=== PATIENT | male | born 1945 | race Caucasian/White ===

== ENCOUNTER 2025-05-18 05:45 | Day surgery (SDC) | payer MEDICARE, OTHER ==
--- NOTE | 2025-05-10 14:53 | ELECTROCARDIOGRAPH REPORT ---
[facility] Test Date: 2025-05-10 Test Time: 14:51:16 Pat Name: JAMARI WALDEN Department: [facility]-PRE-OP Patient ID: [id number] Room: Gender: M Postpartum Nurse: nabil : 1945 Requested By: DARLYN BULL Order Number: [id number] Reading MD: Dr. Colton Ascencio Measurements Intervals [place] Rate: 56 P: 63 UT: 180 QRS: 39 QRSD: 95 T: 62 QT: 399 QTc: 386 Interpretive Statements Sinus rhythm Ventricular trigeminy, multiform PVCs Abnormal R-wave progression, early transition Electronically Signed On 05-12-2025 13:17:[address] Colton Ascencio Please click the below link to view image of tracing.
[2025-05-10 14:59] LABS: MEAN PLATELET VOLUME 9.6 FL (7.4-10.4); PRE OP HEMATOCRIT 43.2 % (42.0-52.0); PRE OP HEMOGLOBIN 14.7 g/dL (14.0-17.9); PRE OP PLATELET COUNT 206 X10'3 (140-440); PRE OP WHITE BLOOD COUNT 6.4 10'3 (4.8-10.8); RED CELL DISTRIBUTION WIDTH 13.6 % (11.5-14.5)
[2025-05-10 15:17] LABS: PRE OP INR 1.1 INR; PRE OP PARTIAL THROMB. TIME 25.0 SECONDS (22-32); PRE OP PROTIME 11.0 SECONDS (9.0-12.0)
[2025-05-10 15:30] LABS: CREATININE 1.21 MG/DL (0.60-1.10); PRE OP ALT 35 U/L (30-65); PRE OP ANION GAP 9 (8-16); PRE OP AST 23 U/L (10-37); PRE OP BILIRUB, TOTAL 0.5 MG/DL (0.0-1.0); PRE OP GLUCOSE 100 MG/DL (70-104); PRE OP POTASSIUM 4.4 MMOL/L (3.4-5.1); PRE OP SODIUM 144 MMOL/L (135-145); TOTAL CARBON DIOXIDE 27.5 MMOL/L (24-32); eGFR 58 ML/MIN
[2025-05-18] VITALS (12 sets, daily range): BP systolic 116–164; BP diastolic 59–86; PULSE 50–60; RESP 12–16; TEMP 96.7; O2SAT 95–100
[~2025-05-18] VITALS: Ht 175.3 cm; Wt 90.4 kg
[~2025-05-18 05:45] MED LIST: FERR325T28 PO; LEVO50TA8 PO; MULT-1085 PO; oxymetazoline 15 ML nasal spray NS ONE
[2025-05-18] MEDS ORDERED: epiNEPHrine 1 mg/ml 30ml MDV ONE (06:50)
[2025-05-18] MEDS ORDERED: cocaine 4% topical solution 4ml bottle ONE (06:50)
[2025-05-18] MEDS ORDERED: LIDOcaine 1% W/epiNEPHrine 1:100,000 20ml vial ONE (06:51)
[2025-05-18] MEDS ORDERED: oxymetazoline 15 ML nasal spray NS ONE ×2 (06:54→07:01)
[2025-05-18] MEDS: ringers solution, lacted 1,000 ML IV SCH (06:56)
[2025-05-18] MEDS: ceFAZolin 2gm/dext,iso 50mL 50 ML IV ONE (06:57)
[2025-05-18] MEDS: oxymetazoline 15 ML nasal spray NS ONE (07:39)
[2025-05-18] MEDS ORDERED: midazolam 1 mg/ML 2ml injection ONE (08:15)
[2025-05-18] MEDS ORDERED: fentaNYL /PF 50mcg/ml 5ml ampule ONE (08:15)
[2025-05-18] MEDS ORDERED: ondansetron/PF 4mg/2ml inj ONE (08:17)
[2025-05-18] MEDS ORDERED: propofol inj 20 ML IV ONE (08:17)
[2025-05-18] MEDS ORDERED: dexamethasone sod phosphate 4mg/ml inj. ONE (08:17)
[2025-05-18] MEDS ORDERED: LIDOcaine 2% (20mg/ml) 5ml vial ONE (08:17)
[2025-05-18] MEDS ORDERED: ondansetron/PF 4mg/2ml inj IV PRN (10:00)
[2025-05-18] MEDS ORDERED: fentaNYL/PF 50MCG/1 ML 2ML syringe IV PRN ×2 (10:00)
[2025-05-18] MEDS ORDERED: labetalol 20mg/4ml (5mg/ml) syringe IV PRN (10:00)
[2025-05-18] MEDS ORDERED: HYDROmorphone/PF 0.2 MG/ML SYRINGE IV PRN ×2 (10:00)
[2025-05-18] MEDS ORDERED: ringers solution, lacted 1,000 ML IV SCH (10:00)
[2025-05-18] MEDS ORDERED: morphine 4 MG/ML inj SYRINge IV PRN (10:00)
--- NOTE | 2025-05-18 10:06 | OPERATIVE REPORT ---
DATE OF SURGERY: 05/18/2025 DICTATING PHYSICIAN: Dg Palumbo MD PREOPERATIVE DIAGNOSES: Deviated nasal septum, hypertrophic inferior turbinates. POSTOPERATIVE DIAGNOSES: Deviated nasal septum, hypertrophic inferior turbinates. PROCEDURES: * Septoplasty. * Submucous resection, right inferior turbinate. * Submucous resection, left inferior turbinate. SURGEON: Dg Palumbo MD. ANESTHESIA: General laryngeal mask, Dr. Escobar. HISTORY: The patient is a 79-year-old male with a chief complaint of anosmia and nasal airway obstruction. On physical examination, the septum was widely deviated in a convoluted fashion with multiple deviations of the bony and cartilaginous septum. The inferior turbinates were hypertrophic. On the basis of the above findings, I felt the patient had anosmia and nasal airway obstruction was the possible cause and therefore the risks, alternatives, and benefits of surgery were explained to the patient and accepted. DESCRIPTION OF PROCEDURE: The patient was brought to the operating room, given a general anesthesia, and prepped and draped in the usual fashion. 1% Xylocaine with 1:100,000 epinephrine was infiltrated into both sides of the septum and the inferior turbinates. After a suitable time had elapsed for vasoconstriction, the operation commenced with a septoplasty. A caudal incision was created on the left hand side of the septum and a mucoperichondrial mucoperiosteal flap very carefully elevated. A [place] knife was used to transect the quadrilateral cartilage just caudal to the most caudal deflection and a mucoperichondrial mucoperiosteal flap elevated off of the contralateral side. Then, the deviated portions of quadrilateral cartilage, perpendicular plate of the ethmoid, vomer, and maxillary crests were removed. Septal leaves were coapted using a combination of fibrin glue and 4-0 chromic on a P3 needle, which yielded a midline septum. The caudal incision was closed with 3 interrupted sutures of 4-0 chromic on a P3 needle. Then, a horizontal mattress suture was placed with a long bayonet needle rolloff truck driver of 4-0 chromic on a P3 needle. We turned our attention then to the left inferior turbinate. The left inferior turbinate [place] bone was lateralized using a [place] elevator and then a submucous resection accomplished in the following manner. A caudal incision was made with a [place] blade and then a medial flap elevated using caudal elevator and suction elevator. Next, the turbinate blade was placed into the pocket and rotated so that it microshaved away the undersurface of the mucoperiosteal flap, removing hypertrophic submucosal stroma. The medial flap was allowed to recede itself down upon the conchal bone and the flap incision closed with bipolar forceps. We turned our attention to the right inferior turbinate, which was also hypertrophic and carried out a submucosal resection utilizing the same techniques as described above. At the end of the procedure, hemostasis was intact. Bactroban water soluble ointment was used to coat the septum and the inferior turbinates and then 2 cottonoids placed in each nasal cavity for pressure hemostasis. These will be removed in the recovery room leaving the patient unpacked. The patient tolerated the procedure well with the accompaniment of a minimal blood loss. Dg Palumbo MD TID: [id number] RECEIPT: [id number] GD/IRLANDA cc: Abdirizak Redyd MD
[2025-05-18] MEDS: salt irrigation nasal spray 45 ML SPRAY NS ONE (10:23)
[2025-05-18] MEDS: mupirocin 2% nasal ointment 1gm UD NS ONE (10:23)
[2025-05-18] MEDS: enalaprilat 1.25mg/ml 2ml vial IV PRN (10:23)
--- NOTE | 2025-05-20 16:12 | PATHOLOGY REPORT ---
[facility] [address] [place] [address] SURGICAL PATHOLOGY REPORT CaseNumber: [id number] Surgeon:SHARITA Bhakta CLINICAL INFORMATION CLINICAL INFORMATION: Deviated septum, hypertrophy. DIAGNOSIS DIAGNOSIS: SEPTUM; RESECTION - FRAGMENTS OF FLAT BONE AND CARTILAGE GROSSLY DESCRIBED. MICROSCOPIC DESCRIPTION MICROSCOPIC DESCRIPTION: Not performed. GROSS DESCRIPTION GROSS DESCRIPTION: Received in a container of formalin labeled with the patient's name, number, and "septal fragments" is a 3 x 3 x 0.6 cm aggregate of irregularly shaped pieces of flat bone and associated cartilage. A discrete mass lesion is not identified. No sections. Electronically signed by: Gavin Clarke M.D. 05/20/2025 3:35:00 PM
== END 2025-05-18 11:23 | disposition home or self-care (01) ==
LOC: PAS 05:45
PROVIDERS: ATTEND Otolaryngology
DX: J34.2 Deviated nasal septum (principal); J34.3 Hypertrophy of nasal turbinates; I49.3 Ventricular premature depolarization; R94.31 Abnormal electrocardiogram [ECG] [EKG]; E03.9 Hypothyroidism, unspecified; Z79.890 Hormone replacement therapy; Z96.653 Presence of artificial knee joint, bilateral; Z98.890 Other specified postprocedural states
CPT/HCPCS: 30140; 30520; 36415; 80053; 82948; 85025; 85610; 85730; 93005; A4618; A6402; A7000; J0169; J1100; J2003; J2250; J2405; J2704; J3010; J3490; J7030; J7120; Z7506; Z7508; Z7512; Z7610; 88300; A6449